=== PATIENT | female | born 1965 | race Caucasian/White ===

== ENCOUNTER 2021-05-10 09:49 | Day surgery (SDC) | payer OTHER, SELFPAY ==
[2021-05-08 12:07] LABS: BASOPHILS # (AUTO) 0.1 K/uL (0.0-0.2); BASOPHILS % (AUTO) 0.6 % (0.0-2.0); EOSINOPHILS # (AUTO) 0.4 K/uL (0.0-0.4); EOSINOPHILS % (AUTO) 4.3 % (0.0-4.0); HEMATOCRIT 38.7 % (36-48); HEMOGLOBIN 12.4 g/dL (12.0-16.0); LYMPHOCYTES # (AUTO) 3.5 K/uL (1.0-5.5); LYMPHOCYTES % (AUTO) 39.3 % (20.5-51.5); MEAN CORPUSCULAR HEMOGLOBIN 25 pg (27-31); MEAN CORPUSCULAR HGB CONC 32 % (32-36); MEAN CORPUSCULAR VOLUME 78 fL (79.0-98.0); MONOCYTES # (AUTO) 0.5 K/uL (0.0-1.0); MONOCYTES % (AUTO) 5.2 % (1.7-9.3); NEUTROPHILS # (AUTO) 4.5 K/uL (1.8-7.7); NEUTROPHILS % (AUTO) 50.6 % (40.0-70.0); PLATELET COUNT (AUTO) 269 K/uL (130-430); RED BLOOD CELL COUNT(AUTO) 4.94 MIL/uL (4.2-6.2); RED CELL DISTRIBUTION WIDTH 18.4 % (9.0-15.0); WHITE BLOOD COUNT (AUTO) 8.9 K/uL (4.8-10.8)
[2021-05-08 12:20] LABS: ALBUMIN 3.9 g/dL (3.4-4.8); CALCIUM 9.4 mg/dL (8.4-11.0); CREATININE 0.6 mg/dL (0.55-1.30); POTASSIUM 3.8 mmol/L (3.5-5.1); TOTAL BILIRUBIN 0.2 mg/dL (0.0-1.0)
[2021-05-08 13:01] LABS: INR 0.9 (0.8-1.2); PROTHROMBIN TIME 9.9 SECS (9.5-12.5)
[~2021-05-10] VITALS: Ht 157.5 cm; Wt 76.2 kg
[~2021-05-10 09:49] MED LIST: CEFAZOLIN SOD 1 GM in D5W 50 ML IV ONE
[2021-05-10 14:03] LABS: HCG,QUAL RESULT NEGATIVE (NEGATIVE)
[2021-05-10] MEDS ORDERED: ePHEDrine sulfate 50 MG/ML VIAL IVP ONE (14:14)
[2021-05-10] MEDS ORDERED: PROPOFOL 200MG/ 20ML VIAL (DIPRIVAN) IV ONE (14:14)
[2021-05-10] MEDS ORDERED: LR 1,000 ML IV.SOLN IV ONE (14:14)
[2021-05-10] MEDS ORDERED: SEVOFLURANE 15 MIN GAS INH ONE (14:14)
[2021-05-10] MEDS ORDERED: NS 1000 ML IV.SOLN IV ONE (14:14)
[2021-05-10] MEDS ORDERED: KETOROLAC TROMETHAMINE 30 MG VIAL IVP ONE (14:14)
[2021-05-10] MEDS ORDERED: ONDANSETRON HCL 4 MG/2 ML VIAL IVP ONE (14:14)
[2021-05-10] MEDS ORDERED: ROPIVACAINE 40 MG/20 ML AMP EP ONE (14:14)
[2021-05-10] MEDS ORDERED: KETOROLAC TROMETHAMINE 30 MG VIAL IVP PRN (15:15)
[2021-05-10] MEDS ORDERED: ONDANSETRON HCL 4 MG/2 ML VIAL IVP PRN (15:15)
[2021-05-10] MEDS ORDERED: HYDROmorphone 1 MG/ML INJ. CARTRIDGE IVP PRN (15:15)
[2021-05-10 18:32] VITALS: BP_SYST 128
== END 2021-05-10 18:10 | disposition home or self-care (01) ==
LOC: SDS 09:49 → SMU 09:57 → SDS 18:10
PROVIDERS: ATTEND Orthopaedic Surgery Sports Medicine
DX: S83.242A Other tear of medial meniscus, current injury, left knee, initial encounter (principal); M94.262 Chondromalacia, left knee; I10 Essential (primary) hypertension; E11.9 Type 2 diabetes mellitus without complications; E78.5 Hyperlipidemia, unspecified; F41.9 Anxiety disorder, unspecified; F32.9 Major depressive disorder, single episode, unspecified; X58.XXXA Exposure to other specified factors, initial encounter; Y93.89 Activity, other specified; Y92.89 Other specified places as the place of occurrence of the external cause; Y99.8 Other external cause status; Z20.822 Contact with and (suspected) exposure to COVID-19; Z79.01 Long term (current) use of anticoagulants; Z79.899 Other long term (current) drug therapy
CPT/HCPCS: 29882; 36415 ×2; 71046; 80053; 82962; 84703; 85025; 85610; 85730; 87426 ×2; C1713; J0690; J1885; J2405; J2704; J2795; J7030; J7060; J7120